=== PATIENT | female | born 1970 | race African-American/Black ===

== ENCOUNTER 2019-11-02 04:46 | Day surgery (SDC) | payer OTHER ==
[2019-10-29 16:39] VITALS: BMI 33.1
[2019-11-02] MEDS ORDERED: ACETAMINOPHEN 325 MG TABLET (FP) PO PRN (10:25)
[2019-11-02] MEDS ORDERED: IBUPROFEN 400 MG TABLET (FP) PO PRN (10:25)
--- NOTE | 2019-11-02 10:26 | HP ---
History & Physical Update - History History: No Change - Physical Physical: No Change - Assessment Assessment: No Change - Plan Plan: No Change (No change in HP)
[2019-11-02] MEDS ORDERED: oxyCODONE HCL 5 MG TABLET PO PRN (12:02)
[2019-11-02] MEDS ORDERED: ONDANSETRON 4 MG/2 ML VIAL IVPUSH PRN (12:02)
[2019-11-02] MEDS ORDERED: PROMETHAZINE HCL 25 MG/1 ML VIAL IVPB PRN (12:02)
[2019-11-02] MEDS ORDERED: PROPOFOL 20 ML ONE (12:13)
[2019-11-02] MEDS ORDERED: MIDAZOLAM HCL 2 MG/2 ML SINGLE DOSE VIAL ONE (12:14)
[2019-11-02] MEDS ORDERED: LACTATED RINGERS SOLUTION 1,000 ML IV SCH (12:15)
[2019-11-02] MEDS ORDERED: LIDOCAINE HCL/PF 2% SDV 5ML VIAL ONE (12:42)
[2019-11-02] MEDS ORDERED: KETOROLAC TROMETHAMINE 30 MG/1 ML VIAL ONE (12:59)
[2019-11-02] MEDS ORDERED: DEXAMETHASONE SOD PHOSPHATE 4 MG/1 ML VIAL ONE (12:59)
--- NOTE | 2019-11-02 13:40 | OP ---
DATE OF OPERATION: 11/02/2019 PREOPERATIVE DIAGNOSIS: Endometrial polyps. OPERATION: Hysteroscopic myomectomy, suction dilation and curettage. POSTOPERATIVE DIAGNOSIS: Endometrial polyps. SURGEON: Elisa Guevara MD ANESTHESIA: General. ANESTHESIOLOGIST: Matteo Blas MD ESTIMATED BLOOD LOSS: 30 mL PROCEDURE: Patient was taken to the operating room, placed in the dorsal supine position, prepped and draped in usual sterile fashion. Timeout was performed in accordance with hospital regulation. Speculum was placed in the vagina. Anterior lip of the cervix was grasped with single-tooth tenaculum. Cervix was then dilated to accommodate the operative hysteroscope. Hysteroscopy revealed endometrial polyps. Cautery and cutting of the endometrial polyps with the operative hysteroscope was then done followed by suction D&C. This procedure was repeated 3 or 4 times. All contents were emptied. All instruments were removed. Patient had tolerated procedure well. Estimated blood loss 30 mL. ELISA GUEVARA M.D. [place]/[id number]
[2019-11-02 17:42] VITALS: BP 145/67; PULSE 73; TEMP 96.9
--- NOTE | 2019-11-04 15:04 | PATH ---
Surgical Pathology Report Patient Name: KALIA RASCON Med. Rec. #: [id number] /Age/Gender: 1970 (Age: 49) / F Account: [id number] Location: [facility] SURGICAL Taken: 11/02/2019 Received: 11/03/2019 Reported: 11/04/2019 Physicians: Elisa Guevara M.D. Specimen(s) Received ENDOMETRIAL POLYP Clinical History Endometrial polyp Final Diagnosis ENDOMETRIAL POLYP, EXCISION: ENDOMETRIAL POLYP. SEPARATE FRAGMENTS OF SECRETORY TYPE ENDOMETRIUM. ENDOCERVICAL TISSUE AND SQUAMOUS EPITHELIUM WITH NO SIGNIFICANT PATHOLOGIC CHANGE. Electronically Signed Kirby Durant M.D. Gross Description Received in formalin labeled "endometrial polyp," is a 5.0 x 4.5 x 0.4 cm aggregate mars soft tissue fragments. The formalin is filtered and the specimen is entirely submitted in 6 cassettes. /11/03/2019 saudi/11/03/2019
== END 2019-11-02 16:25 | disposition home or self-care (01) ==
LOC: JASU-SURG 04:46
PROVIDERS: ATTEND Obstetrics & Gynecology
PROC: 0UJD8ZZ Inspection of Uterus and Cervix, Via Natural or Artificial Opening Endoscopic (ICD-10-PCS; 2019-11-02)
PROC: 0UB97ZX Excision of Uterus, Via Natural or Artificial Opening, Diagnostic (ICD-10-PCS; principal; 2019-11-02 10:30)
PROC: 0UDB7ZX Extraction of Endometrium, Via Natural or Artificial Opening, Diagnostic (ICD-10-PCS; 2019-11-02 10:30)
DX: N84.0 Polyp of corpus uteri (principal)
CPT/HCPCS: 36415; 84703; 86850; 86900; 86901; 88305-TC; 94760

== ENCOUNTER 2020-12-16 17:21 | Emergency (ER) | payer OTHER ==
[2020-12-16 17:30] VITALS: BP 140/73; PULSE 59; TEMP 97.8; BMI 31.1
[2020-12-16] MEDS ORDERED: CLINDAMYCIN HCL 150 MG CAPSULE (FP) PO ONE (18:18)
[2020-12-16] MEDS ORDERED: IBUPROFEN 400 MG TABLET (FP) PO ONE ×2 (18:18→18:20)
[2020-12-16] MEDS ORDERED: CLINDAMYCIN HCL 150 MG CAPSULE (FP) ONE (18:20)
== END 2020-12-16 18:38 | disposition home or self-care (01) ==
LOC: JERFT 17:21 → JER 17:21 → JERFT 18:38
PROC: 0H9FXZZ Drainage of Right Hand Skin, External Approach (ICD-10-PCS; principal; 2020-12-16)
DX: L03.011 Cellulitis of right finger (principal)
CPT/HCPCS: 99283-25

== ENCOUNTER 2020-12-19 16:22 | Emergency (ER) | payer OTHER ==
[2020-12-19 16:44] VITALS: BP 153/91; PULSE 61; TEMP 98; BMI 31.1
== END 2020-12-19 17:20 | disposition home or self-care (01) ==
LOC: JERFT 16:22
DX: L03.011 Cellulitis of right finger (principal)
CPT/HCPCS: 99281-25

== ENCOUNTER 2021-10-09 04:17 | Day surgery (SDC) | payer OTHER ==
[2021-10-05 12:30] VITALS: BMI 34.5
[2021-10-09] MEDS ORDERED: ceFAZolin SODIUM 1 GM VIAL ONE (08:43)
[2021-10-09] MEDS ORDERED: TRANEXAMIC ACID 1000 MG/10 ML VIAL IVPUSH ONE (09:30)
[2021-10-09] MEDS ORDERED: CEFAZOLIN 2 GM in DEXTROSE 5%-WATER - 100 ML IVPB ONE (09:30)
[2021-10-09] MEDS ORDERED: GABAPENTIN 300 MG CAPSULE PO ONE (09:30)
[2021-10-09] MEDS ORDERED: PHENAZOPYRIDINE HCL 100 MG TABLET (FP) PO ONE (09:30)
[2021-10-09] MEDS ORDERED: ACETAMINOPHEN 1000 MG/100 ML BAG IVPB ONE (09:30)
[2021-10-09] MEDS ORDERED: BUPIVACAINE HCL/PF 0.25% (2.5MG/ML) 10 ML VIAL ONE (09:53)
[2021-10-09] MEDS ORDERED: MIDAZOLAM HCL 2 MG/2 ML SINGLE DOSE VIAL ONE (09:54)
[2021-10-09] MEDS ORDERED: HYDROmorphone HCl 2 MG/ML VIAL ONE (09:54)
[2021-10-09] MEDS ORDERED: ROCURONIUM BROMIDE 50 MG/5 ML SYRINGE ONE (09:55)
[2021-10-09] MEDS ORDERED: PROPOFOL 20 ML ONE (09:55)
[2021-10-09] MEDS ORDERED: ceFAZolin SODIUM 1 GM VIAL IVPB ONE (10:25)
[2021-10-09] MEDS ORDERED: NEOSTIGMINE METHYLSULFATE 0.5 MG/ML - 10 ML MDV ONE (12:50)
[2021-10-09] MEDS ORDERED: oxyCODONE HCL 5 MG TABLET PO PRN ×2 (13:41)
[2021-10-09] MEDS ORDERED: DOCUSATE SODIUM 100 MG CAPSULE (FP) PO PRN (13:41)
[2021-10-09] MEDS ORDERED: ONDANSETRON 4 MG/2 ML VIAL IVPUSH PRN (13:41)
[2021-10-09] MEDS ORDERED: SIMETHICONE 80 MG TAB.CHEW (FP) PO PRN (13:41)
[2021-10-09] MEDS ORDERED: BISACODYL 5 MG TABLET.DR (FP) PO PRN (13:41)
[2021-10-09] MEDS ORDERED: LACTATED RINGERS SOLUTION 1,000 ML IV SCH (14:30)
[2021-10-09] MEDS ORDERED: ACETAMINOPHEN INJECTION 100 ML IVPB ONE (15:07)
[2021-10-09] MEDS: CEFAZOLIN 1 GM in DEXTROSE 5%-WATER - 50 ML IVPB SCH (17:14)
[2021-10-09] MEDS: ACETAMINOPHEN 325 MG TABLET (FP) PO SCH ×2 (19:00→23:29)
[2021-10-09 19:39] LABS: HEMOGLOBIN 11.8 GM/dL (10.7-15.3); MCHC 32.9 g/dl (32.0-36.0); MEAN CELL VOLUME 79.1 fl (80-96); MEAN PLT VOLUME 8.1 fl (7.5-11.1); PLATELET COUNT 235 10^3/uL (134-434); RBC 4.55 M/mm3 (3.60-5.2); RDW 14.2 % (11.6-15.6); WHITE BLOOD COUNT 9.8 K/mm3 (4.0-10.0)
[2021-10-09 20:02] LABS: CALCIUM 9.7 mg/dL (8.5-10.1)
[2021-10-09 20:03] LABS: BLOOD UREA NITROGEN 6.9 mg/dL (7-18)
[2021-10-09 20:06] LABS: CREATININE 0.7 mg/dL (0.55-1.3)
[2021-10-09] MEDS: IBUPROFEN 800 MG/8 ML IJ IVPB SCH (21:39)
[2021-10-09 21:40] VITALS: RESP 18
[2021-10-10] MEDS: CEFAZOLIN 1 GM in DEXTROSE 5%-WATER - 50 ML IVPB SCH (02:18)
[2021-10-10] MEDS: ACETAMINOPHEN 325 MG TABLET (FP) PO SCH ×4 (03:00→12:09)
[2021-10-10] MEDS: IBUPROFEN 800 MG/8 ML IJ IVPB SCH (05:47)
[2021-10-10 09:13] VITALS: BP 133/78; PULSE 66; TEMP 98.1
[2021-10-10 09:36] LABS: HEMATOCRIT 38.1 % (32.4-45.2); HEMOGLOBIN 12.5 GM/dL (10.7-15.3); MCH 25.8 pg (25.7-33.7); MCHC 32.8 g/dl (32.0-36.0); MEAN CELL VOLUME 78.7 fl (80-96); MEAN PLT VOLUME 8.5 fl (7.5-11.1); PLATELET COUNT 236 10^3/uL (134-434); RBC 4.84 M/mm3 (3.60-5.2); RDW 14.5 % (11.6-15.6)
[2021-10-10 09:50] LABS: BLOOD UREA NITROGEN 5.1 mg/dL (7-18); CALCIUM 10.1 mg/dL (8.5-10.1)
[2021-10-10 09:54] LABS: CREATININE 0.7 mg/dL (0.55-1.3)
[2021-10-10] MEDS ORDERED: ENOXAPARIN NA (PORCINE) 40 MG/0.4 ML DISP.SYRIN SQ SCH (10:00)
== END 2021-10-10 13:20 | disposition home or self-care (01) ==
LOC: JASUSAT 04:17 → J3W 15:35 → JASUSAT 10-10 13:20
PROVIDERS: ATTEND Obstetrics & Gynecology
PROC: 0UT7FZZ Resection of Bilateral Fallopian Tubes, Via Natural or Artificial Opening With Percutaneous Endoscopic Assistance (ICD-10-PCS; 2021-10-09)
PROC: 8E0W4CZ Robotic Assisted Procedure of Trunk Region, Percutaneous Endoscopic Approach (ICD-10-PCS; 2021-10-09)
PROC: 0UB14ZZ Excision of Left Ovary, Percutaneous Endoscopic Approach (ICD-10-PCS; principal; 2021-10-09 10:30)
PROC: 0UT9FZZ Resection of Uterus, Via Natural or Artificial Opening With Percutaneous Endoscopic Assistance (ICD-10-PCS; 2021-10-09 10:30)
DX: D25.1 Intramural leiomyoma of uterus (principal); D25.2 Subserosal leiomyoma of uterus; N83.202 Unspecified ovarian cyst, left side
CPT/HCPCS: 58552; 58662; S2900; 36415; 80048; 81025; 85027; 86850; 86900; 86901; 88302-TC; 88305-TC; 88307-TC; 94010; 94760

== ENCOUNTER 2022-10-04 04:28 | Day surgery (SDC) | payer OTHER ==
[2022-10-03 11:34] VITALS: BMI 31.9
[2022-10-04 08:11] VITALS: TEMP 98
[2022-10-04 08:39] VITALS: RESP 15
[2022-10-04 08:43] VITALS: BP 131/77; PULSE 60
== END 2022-10-04 09:34 | disposition home or self-care (01) ==
LOC: JASU-ENDO 04:28
PROVIDERS: ATTEND Internal Medicine Gastroenterology
PROC: 0DJD8ZZ Inspection of Lower Intestinal Tract, Via Natural or Artificial Opening Endoscopic (ICD-10-PCS; principal; 2022-10-04 08:00)
DX: Z12.11 Encounter for screening for malignant neoplasm of colon (principal)